=== PATIENT | female | born 1970 | race Caucasian/White ===

== ENCOUNTER → 2019-08-28 16:50 | Outpatient (CLI) | payer BC, SELFPAY ==
[2019-08-28 17:35] LABS: Absolute Lymphocyte Count 3.03 X10^3/uL (0.83-4.51); Absolute Neutrophil Count 5.1 X10^3/uL (2.0-7.7); Basophil# 0.04 X10^3/uL; Basophil% 0.4 % (0-1); Eosinophils% 2.2 % (0-5); Hematocrit 41.8 % (37-47); Hemoglobin 12.8 g/dL (12.0-15.0); Lymphocyte # 3.03 X10^3/ul (4.0); Lymphocyte % 33.9 % (19-41); Mean Corp Hgb Conc 30.6 g/dL (32-36); Mean Corpuscular Hgb 26.4 pg (27.0-32.0); Mean Corpuscular Volume 86.4 fL (81-99); Mean Platelet Vol. 9.9 fl (6.2-12.0); Monocyte# 0.56 X10^3/uL; Monocyte% 6.3 % (0-10); NRBC Flagged by Analyzer 0 % (0-5); Neutrophil # 5.07 X10^3/uL (2.7-7.7); Neutrophil % 56.9 % (47-70); Platelet Count 295 K/mm3 (150-450); RBC Distribution Width CV 14.9 % (11.6-14.6); RBC Distribution Width SD 47.7 fl (35.1-43.9); Red Blood Count 4.84 M/mm3 (4.2-5.4); White Blood Count 8.9 K/mm3 (4.4-11.0)
[2019-08-28 17:51] LABS: Hemoglobin A1c 5.6 % (4.2-6.3)
[2019-08-28 18:28] LABS: AST(SGOT) 20 U/L (15-37); Alanine Aminotransfer ALT/SGPT 28 U/L (13-56); Albumin, Serum 3.3 g/dL (3.2-5.0); Alkaline Phosphatase 142 U/L (45-117); Anion Gap 3 (5-15); BUN 15 mg/dL (7-18); BUN/Creat Ratio 17.5 RATIO (10-20); Calcium,Total 9.7 mg/dL (8.5-10.1); Chloride 109 mmol/L (98-107); Cholesterol 142 mg/dL (200); Creatinine, Serum 0.86 mg/dL (0.55-1.02); EST Glomerular Filtration Rate 75 mL/min (>60); Est Glom Filt Rate - Afr Amer 91 mL/min (>60); Globulin 3.3 g/dL (2.2-4.2); Glucose 79 mg/dL (74-106); High Density Lipoprotein 66 mg/dL; Potassium 4.6 mmol/L (3.5-5.1); Protein, Total 6.6 g/dL (6.4-8.2); Sodium Level 142 mmol/L (136-145); Triglycerides 67 mg/dL; Very Low Density Lipoprotein 13 mg/dL (5-40)
== END ==
PROVIDERS: PCP Family Medicine; Referring Provider Family Medicine; Visit Provider Family Medicine
DX: E88.81 Metabolic syndrome and other insulin resistance (principal)
CPT/HCPCS: 36415; 80053; 80061; 83036; 84443; 85025

== ENCOUNTER → 2020-09-05 12:07 | Outpatient (CLI) | payer BC, SELFPAY ==
[2020-09-05 12:53] LABS: ALB/GLOB Ratio 0.9 RATIO (0.9-2.4); AST(SGOT) 15 U/L (15-37); Alanine Aminotransfer ALT/SGPT 27 U/L (13-56); Albumin, Serum 3.1 g/dL (3.2-5.0); Alkaline Phosphatase 145 U/L (45-117); Anion Gap 4 (5-15); BUN 11 mg/dL (7-18); BUN/Creat Ratio 14.1 RATIO (10-20); Calcium,Total 8.8 mg/dL (8.5-10.1); Chloride 110 mmol/L (98-107); Cholesterol 132 mg/dL (200); Creatinine, Serum 0.78 mg/dL (0.55-1.02); EST Glomerular Filtration Rate 84 mL/min (>60); Est Glom Filt Rate - Afr Amer 101 mL/min (>60); Globulin 3.5 g/dL (2.2-4.2); Glucose 87 mg/dL (74-106); High Density Lipoprotein 62 mg/dL; Potassium 3.8 mmol/L (3.5-5.1); Protein, Total 6.6 g/dL (6.4-8.2); Sodium Level 141 mmol/L (136-145); Thyroid Stim Hormone (TSH) 1.07 uIU/mL (0.358-3.74); Triglycerides 63 mg/dL; Very Low Density Lipoprotein 13 mg/dL (5-40)
[2020-09-05 12:54] LABS: Absolute Lymphocyte Count 2.53 X10^3/uL (0.83-4.51); Absolute Neutrophil Count 3.9 X10^3/uL (2.0-7.7); Basophil# 0.04 X10^3/uL; Basophil% 0.6 % (0-1); Eosinophils% 2.8 % (0-5); Hematocrit 44.7 % (37-47); Hemoglobin 14.1 g/dL (12.0-15.0); Lymphocyte # 2.53 X10^3/ul (4.0); Lymphocyte % 35.6 % (19-41); Mean Corp Hgb Conc 31.5 g/dL (32-36); Mean Corpuscular Hgb 27.3 pg (27.0-32.0); Mean Corpuscular Volume 86.5 fL (81-99); Monocyte# 0.47 X10^3/uL; Monocyte% 6.6 % (0-10); NRBC Flagged by Analyzer 0 % (0-5); Neutrophil # 3.85 X10^3/uL (2.7-7.7); Neutrophil % 54.3 % (47-70); Platelet Count 333 K/mm3 (150-450); RBC Distribution Width CV 13.1 % (11.6-14.6); RBC Distribution Width SD 41.4 fl (35.1-43.9); Red Blood Count 5.17 M/mm3 (4.2-5.4); White Blood Count 7.1 K/mm3 (4.4-11.0)
[2020-09-05 13:22] LABS: Hemoglobin A1c 5.6 % (3.8-5.6)
== END ==
PROVIDERS: PCP Family Medicine; Visit Provider Family Medicine
DX: E88.81 Metabolic syndrome and other insulin resistance (principal); E66.01 Morbid (severe) obesity due to excess calories; Z68.43 Body mass index [BMI] 50.0-59.9, adult
CPT/HCPCS: 36415; 80053; 80061; 83036; 84443; 85025

== ENCOUNTER → 2021-06-28 17:10 | Outpatient (CLI) | payer BC, SELFPAY ==
[2021-06-28 18:17] LABS: Absolute Lymphocyte Count 3.16 X10^3/uL (0.83-4.51); Absolute Neutrophil Count 4.7 X10^3/uL (2.0-7.7); Basophil# 0.03 X10^3/uL; Basophil% 0.3 % (0-1); Eosinophil# 0.22 X10^3/uL; Eosinophils% 2.5 % (0-5); Hematocrit 43.4 % (37-47); Hemoglobin 13.7 g/dL (12.0-15.0); Lymphocyte # 3.16 X10^3/ul (0.83-4.51); Lymphocyte % 36.4 % (19-41); Mean Corp Hgb Conc 31.6 g/dL (32-36); Mean Corpuscular Hgb 27.6 pg (27.0-32.0); Mean Corpuscular Volume 87.5 fL (81-99); Mean Platelet Vol. 10.6 fl (6.2-12.0); Monocyte# 0.59 X10^3/uL; Monocyte% 6.8 % (0-10); NRBC Flagged by Analyzer 0 % (0-5); Neutrophil # 4.65 X10^3/uL (2.7-7.7); Neutrophil % 53.8 % (47-70); Platelet Count 278 K/mm3 (150-450); RBC Distribution Width CV 14.6 % (11.6-14.6); RBC Distribution Width SD 46.9 fl (35.1-43.9); Red Blood Count 4.96 M/mm3 (4.2-5.4); White Blood Count 8.7 K/mm3 (4.4-11.0)
[2021-06-28 18:52] LABS: Hemoglobin A1c 5.4 % (3.8-5.6)
[2021-06-28 19:07] LABS: ALB/GLOB Ratio 0.8 RATIO (0.9-2.4); AST(SGOT) 19 U/L (15-37); Alanine Aminotransfer ALT/SGPT 24 U/L (13-56); Alkaline Phosphatase 147 U/L (45-117); Anion Gap 4 (5-15); BUN 15 mg/dL (7-18); BUN/Creat Ratio 20.1 RATIO (10-20); Calcium,Total 9.3 mg/dL (8.5-10.1); Chloride 108 mmol/L (98-107); Creatinine, Serum 0.75 mg/dL (0.55-1.02); EST Glomerular Filtration Rate 88 mL/min (>60); Est Glom Filt Rate - Afr Amer 106 mL/min (>60); Globulin 3.8 g/dL (2.2-4.2); Glucose 78 mg/dL (74-106); Potassium 3.9 mmol/L (3.5-5.1); Protein, Total 6.8 g/dL (6.4-8.2); Sodium Level 138 mmol/L (136-145)
== END ==
PROVIDERS: PCP Family Medicine; Visit Provider Family Medicine
DX: R53.83 Other fatigue (principal); E88.81 Metabolic syndrome and other insulin resistance
CPT/HCPCS: 36415; 80053; 83036; 84443; 85025

== ENCOUNTER → 2022-06-21 | Outpatient (CLI) | payer BC, SELFPAY ==
[2022-06-21 18:17] LABS: ALB/GLOB Ratio 0.9 RATIO (0.9-2.4); AST(SGOT) 20 U/L (15-37); Alanine Aminotransfer ALT/SGPT 38 U/L (13-56); Albumin, Serum 3.3 g/dL (3.2-5.0); Alkaline Phosphatase 129 U/L (45-117); Anion Gap 7 (5-15); BUN 15 mg/dL (7-18); BUN/Creat Ratio 19.4 RATIO (10-20); Calcium,Total 9.2 mg/dL (8.5-10.1); Chloride 105 mmol/L (98-107); Cholesterol 149 mg/dL (200); Creatinine, Serum 0.77 mg/dL (0.55-1.02); EST Glomerular Filtration Rate 84 mL/min (>60); Est Glom Filt Rate - Afr Amer 102 mL/min (>60); Globulin 3.5 g/dL (2.2-4.2); Glucose 85 mg/dL (74-106); High Density Lipoprotein 67 mg/dL; Potassium 3.9 mmol/L (3.5-5.1); Protein, Total 6.8 g/dL (6.4-8.2); Sodium Level 139 mmol/L (136-145); Thyroid Stim Hormone (TSH) 1.46 uIU/mL (0.358-3.74)
[2022-06-21 18:56] LABS: Hemoglobin A1c 5.4 % (3.8-5.6)
== END | disposition home or self-care (01) ==
LOC: MTLAB 16:24
PROVIDERS: PCP Family Medicine; Referring Provider Family Medicine; Visit Provider Family Medicine
DX: Z00.00 Encounter for general adult medical examination without abnormal findings (principal)
CPT/HCPCS: 36415; 80053; 82465; 83036; 83718; 84443

== ENCOUNTER → 2022-07-25 | Outpatient (CLI) | payer BC, SELFPAY ==
--- NOTE | 2022-07-25 10:41 | BI_ITS ---
MAMMOGRAPHY - BILATERAL SCREENING REASON FOR EXAM: Female, 51 years old. Routine annual screening examination. PERTINENT HISTORY: Non-contributory. Remote bilateral breast reduction surgery. TECHNIQUE: Digital bilateral breast karime (3D mammographic acquisition) in the CC and MLO projections. 2-D mediolateral oblique (MLO) and craniocaudad (CC) views of both breasts were obtained. CAD: Full Field Digital Mammography with Computer Added Detection was performed. COMPARISON: No comparison mammograms available at this time. If any prior films become available, an addendum to this report can be generated. FINDINGS: Breast Composition: The breasts are almost entirely fatty. There are no dominant masses or suspicious calcifications. No other significant abnormalities are identified. BI/SCRN MAMM (CAD)W/KARIME BILAT IMPRESSION: Negative screening mammogram. Yearly followup mammogram recommended. (A) ASSESSMENT CATEGORY: BIRADS Category 1: Negative. A letter regarding these results will be sent to the patient by the facility within 30 days. Approximately 10% of breast cancers are not detected by mammography. A normal mammogram should not delay biopsy of a clinically suspicious abnormality. [id number] Electronically Signed: Luis Miguel Wild MD at 15:07 EST ,
== END | disposition home or self-care (01) ==
LOC: OPBI 10:39
PROVIDERS: PCP Family Medicine; Referring Provider Family Medicine; Visit Provider Family Medicine
DX: Z12.31 Encounter for screening mammogram for malignant neoplasm of breast (principal)
CPT/HCPCS: 77063; 77067

== ENCOUNTER → 2022-12-13 | Outpatient (CLI) | payer BC, SELFPAY ==
[2022-12-13 17:55] LABS: Absolute Lymphocyte Count 3.35 X10^3/uL (0.83-4.51); Absolute Neutrophil Count 5.1 X10^3/uL (2.0-7.7); Basophil# 0.05 X10^3/uL; Basophil% 0.5 % (0-1); Eosinophil# 0.22 X10^3/uL; Eosinophils% 2.3 % (0-5); Hematocrit 46.2 % (37-47); Hemoglobin 14.7 g/dL (12.0-15.0); Lymphocyte # 3.35 X10^3/ul (0.83-4.51); Lymphocyte % 35.4 % (19-41); Mean Corp Hgb Conc 31.8 g/dL (32-36); Mean Corpuscular Hgb 29.4 pg (27.0-32.0); Mean Corpuscular Volume 92.4 fL (81-99); Mean Platelet Vol. 9.9 fl (6.2-12.0); Monocyte# 0.67 X10^3/uL; Monocyte% 7.1 % (0-10); NRBC Flagged by Analyzer 0 % (0-5); Neutrophil # 5.14 X10^3/uL (2.7-7.7); Neutrophil % 54.5 % (47-70); Platelet Count 287 K/mm3 (150-450); RBC Distribution Width CV 13.1 % (11.6-14.6); RBC Distribution Width SD 44.3 fl (35.1-43.9); White Blood Count 9.5 K/mm3 (4.4-11.0)
[2022-12-13 18:17] LABS: Vitamin B12 412 pg/mL (211-911)
[2022-12-13 18:29] LABS: ALB/GLOB Ratio 0.9 RATIO (0.9-2.4); AST(SGOT) 24 U/L (15-37); Alanine Aminotransfer ALT/SGPT 34 U/L (13-56); Albumin, Serum 3.4 g/dL (3.2-5.0); Alkaline Phosphatase 122 U/L (45-117); Anion Gap 6 (5-15); BUN 13 mg/dL (7-18); Calcium,Total 9.6 mg/dL (8.5-10.1); Chloride 108 mmol/L (98-107); Creatinine, Serum 0.93 mg/dL (0.55-1.02); EST Glomerular Filtration Rate 68 mL/min (>60); Est Glom Filt Rate - Afr Amer 82 mL/min (>60); Globulin 3.7 g/dL (2.2-4.2); Glucose 93 mg/dL (74-106); Potassium 3.9 mmol/L (3.5-5.1); Protein, Total 7.1 g/dL (6.4-8.2); Sodium Level 140 mmol/L (136-145); Thyroid Stim Hormone (TSH) 1.48 uIU/mL (0.358-3.74)
== END | disposition home or self-care (01) ==
LOC: MTLAB 16:28
PROVIDERS: PCP Family Medicine; Referring Provider Family Medicine; Visit Provider Family Medicine
DX: G25.0 Essential tremor (principal); Z79.899 Other long term (current) drug therapy
CPT/HCPCS: 36415; 80053; 82607; 82746; 84443; 85025

== ENCOUNTER → 2023-08-24 | Outpatient (CLI) | payer OTHER, SELFPAY ==
--- NOTE | 2023-08-24 17:13 | RAD_ITS ---
STUDY: X-RAY - LEFT FOOT CLINICAL: Female, 52 years old. pain medial arch at navicular, mild swelling, no redness TECHNIQUE: 3 view(s) of the foot. COMPARISON: None. FINDINGS: Normal talus, calcaneus, and tarsal bones. Small plantar calcaneal enthesophyte. 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 Normal metatarsi. Normal metatarsophalangeal joint of the great toe. There is a bipartite fibula sesamoid. Normal interphalangeal joint of the great toe. Normal phalanges of the great toe. Normal second through fifth metatarsophalangeal joints. Normal interphalangeal joints and phalanges of the lesser toes. The soft tissue structures are unremarkable. RAD/Foot min 3 Views IMPRESSION: 1. Tiny type I accessory navicular bone. 2. Mild midfoot arthrosis. Electronically Signed: Errol Mari MD at 18:49 EST ,
--- OUTSIDE RECORDS SUMMARY | 2023-08-24 17:15 | XMS RPT_ITS | CCD ---
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 Name Role Phone Ronnie Mckeon Unavailable Unavailable Ronnie Mckeon Unavailable Unavailable BlandonSri Karolina Unavailable Unavailable Blandon, Sri Manuel Primary Care Provider RAZA COLE Attending Unavailable BLANDON, SRI MANUEL Primary Care Unavailable RAZA COLE Admitting Unavailable RAZA COLE Referring Unavailable BLANDON, SRI MANUEL Primary Care Unavailable RAZA COLE Admitting Unavailable RAZA COLE Referring Unavailable BLANDON, SRI MANUEL Primary Care Unavailable RAZA COLE Attending Unavailable BLANDON, SRI MANUEL Primary Care Unavailable RAZA COLE Admitting Unavailable RAZA COLE Referring Unavailable BLANDON, SRI MANUEL Primary Care Unavailable RAZA COLE Attending Unavailable BLANDON, SRI MANUEL Primary Care Unavailable MAGOLINE, ANA ROSA Admitting Unavailable JAQUELIN WESTBROOK Attending Unavailable MAGOLINE, ANA ROSA Referring Unavailable BLANDON, SRI MANUEL Primary Care Unavailable MAGOLINE, ANA ROSA Admitting Unavailable MAGOLINE, ANA ROSA Referring Unavailable BLANDON, SRI MANUEL Primary Care Unavailable GISSELL FARR Attending Unavailable MAGOLINE, ANA ROSA Admitting Unavailable JUAN MANUEL HAMPTON Attending Unavailable MAGOLINE, ANA ROSA Referring Unavailable BLANDON, SRI MANUEL Primary Care Unavailable MAGOLINE, ANA ROSA Admitting Unavailable JAQUELIN WESTBROOK Attending Unavailable MAGOLINE, ANA ROSA Referring Unavailable BLANDON, SRI MANUEL Primary Care Unavailable MAGOLINE, ANA ROSA Admitting Unavailable GISSELL FARR Attending Unavailable MAGOLINE, ANA ROSA Referring Unavailable BLANDON, SRI MANUEL Primary Care Unavailable MAGOLINE, ANA ROSA Admitting Unavailable GISSELL FARR Attending Unavailable MAGOLINE, ANA ROSA Referring Unavailable BLANDON, SRI MANUEL Primary Care Unavailable MAGOLINE, ANA ROSA Admitting Unavailable GISSELL FARR Attending Unavailable MAGOLINE, ANA ROSA Referring Unavailable BLANDON, SRI MANUEL Primary Care Unavailable MAGOLINE, ANA ROSA Admitting Unavailable GISSELL FARR Attending Unavailable MAGOLINE, ANA ROSA Referring Unavailable BLANDON, SRI MANUEL Primary Care Unavailable MAGOLINE, ANA ROSA Admitting Unavailable HEMINGJUAN MANUEL GUERRA Attending Unavailable MAGOLINE, ANA ROSA Referring Unavailable BLANDON, SRI MANUEL Primary Care Unavailable MAGOLINE, ANA ROSA Admitting Unavailable ANTONIO, GISSELL Attending Unavailable MAGOLINE, ANA ROAS Referring Unavailable BLANDON, SRI MANUEL Primary Care Unavailable MAGOLINE, ANA ROSA Admitting Unavailable HEMINGER, JUAN MANUEL Attending Unavailable MAGOLINE, ANA ROSA Referring Unavailable BLANDON, SRI MANUEL Primary Care Unavailable MAGOLINE, ANA ROSA Admitting Unavailable MAGOLINE, ANA ROSA Referring Unavailable BLANDON, SRI MANUEL Primary Care Unavailable JAQUELIN WESTBROOK Attending Unavailable MAGOLINE, ANA ROSA Admitting Unavailable ANTONIO, GISSELL Attending Unavailable MAGOLINE, ANA ROSA Referring Unavailable BLANDON, SRI MANUEL Primary Care Unavailable MAGOLINE, ANA ROSA Admitting Unavailable GISSELL FARR Attending Unavailable MAGOLINE, ANA ROSA Referring Unavailable BLANDON, SRI MANUEL Primary Care Unavailable Allergies Allergy Classification Reported Allergen(s) Allergy Type Date of Onset Reaction(s) Facility (1 source) Cat; Translations: [Cats] Propensity to adverse reactions [facility]disorder[facility]) Dust; Translations: [Dust] Propensity to adverse reactions (disorder) [facility] Repository (1 source) No Known Medication Allergies; Translations: [No Known Medication Allergies] Propensity to adverse reactions to drug (disorder) [facility] Repository Medications Current Medications Medication Drug Class(es) Dates Sig (Normalized) Sig (Original) DULoxetine 60 mg delayed release oral capsule (16 sources) Serotonin and Norepinephrine Reuptake Inhibitor Start: 12-20-2018 take 1 capsule by mouth once daily DULoxetine (CYMBALTA) 60 MG capsule Take 60 mg by mouth daily . 1 12/20/2018 Active Completed/Discontinued Medications Medication Drug Class(es) Dates Sig (Normalized) Sig (Original) acetaminophen 325 mg / HYDROcodone bitartrate 5 mg oral tablet (1 source) Opioid Agonist Start: 10-20-2016 End: 12-11-2018 HYDROcodone-acetam inophen (NORCO) 5-325 mg per tablet Problems Problem Classification Problem Date Documented Date Episodic/Chronic Joint disorders and dislocations; trauma-related (2 sources) Unspecified internal derangement of left knee; Translations: [Internal derangement of left knee] Onset: 09-16-2016 09-16-2016 Chronic Joint disorders and dislocations; trauma-related (14 sources) Internal derangement of left knee; Translations: [Internal derangement of left knee] Onset: 09-16-2016 09-16-2016 Other aftercare (20 sources) Surgical follow-up; Translations: [Aftercare for anterior cruciate ligament (ACL) repair] Onset: 07-11-2019 07-11-2019 Episodic Other congenital anomalies (2 sources) Other congenital malformations of lower limb(s), including pelvic girdle; 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] Chronic Other non-traumatic joint disorders (1 source) Pain in left knee; Translations: [Left knee pain, unspecified chronicity] Episodic Residual codes; unclassified (15 sources) History of operative procedure on knee; Translations: [History of left knee replacement] Onset: 07-11-2019 07-11-2019 Episodic Sprains and strains (2 sources) Sprain of unspecified site of left knee, initial encounter; Translations: [Sprain of left knee, unspecified ligament, initial encounter] Episodic Results Test Name Value Interpretation Reference Range Facil ity Vital Signs Date Time Vital Sign Value Performing Clinician Munira jacob 12-11-2018 13:16-0400 BMI (Body Mass Index) 48.42 kg/m2 Raza Cole [facility] 12-11-2018 13:16-0400 Height 167.6 cm Razamelyssa Cole [facility] 12-11-2018 13:16-0400 Weight 136.08 kg Razamelyssa Cole [facility] Encounters Encounter Date Encounter Type Care Provider Facility Start: 09-05-2019 End: 09-09-2019 Patient encounter procedure [facility] Start: 09-05-2019 End: 09-05-2019 Patient encounter procedure Ana Rosa [facility] Plan of Treatment Date Care Activity Detail Author Start: 09-05-2019 End: 09-05-2019 Treatment 09/05/2019 Treatment Ana Rosa Baron MD [address] [facility] [place] [address] Gissell Farr PTA [facility] Start: 09-02-2019 End: 09-02-2019 Treatment [facility] Start: 08-30-2019 End: 08-30-2019 Treatment 08/30/2019 Treatment Rehabilitation Ana Rosa Chamberlain MD [address] [place] [address] Gissell Farr, [facility] Start: 08-26-2019 End: 08-26-2019 Treatment [facility] Start: 08-23-2019 End: 08-23-2019 Treatment 08/23/2019 Treatment Rehabilitation Ana Rosa Chamberlain MD [address] [place] [address] Juan Manuel Hampton, [facility] Start: 08-21-2019 End: 08-21-2019 Treatment 08/21/2019 Treatment Rehabilitation Ana Rosa Chamberlain MD [address] [place] [address] Tammi Bustamante, [facility] Start: 08-16-2019 End: 08-16-2019 Treatment 08/16/2019 Treatment Rehabilitation Ana Rosa Chamberlain MD [address] [place] [address] Juan Manuel Hampton, [facility] Start: 08-14-2019 End: 08-14-2019 Treatment [facility] Start: 08-09-2019 End: 08-09-2019 Treatment 08/09/2019 Treatment Ana Rosa Baron MD [address] [place] [address] Gissell Farr, [facility] Start: 08-06-2019 End: 08-06-2019 Treatment 08/06/2019 Treatment Rehabilitation Ana Rosa Chamberlain MD [address] [place] [address] Tammi Bustamante, [facility] Start: 08-02-2019 End: 08-02-2019 Treatment 08/02/2019 Treatment Ana Rosa Baron MD [address] [place] [address] Tammi Bustamante, [facility] Start: 07-29-2019 End: 07-29-2019 Treatment 07/29/2019 Treatment Ana Rosa Baron MD [address] [place] [address] Gissell Farr, DEPENDENCY CASE MANAGER [facility] Start: 07-26-2019 End: 07-26-2019 Treatment [facility] Start: 07-24-2019 End: 07-24-2019 Treatment 07/24/2019 Treatment Rehabilitation Ana Rosa Chamberlain [facility] [address] [place] [address] Jaquelin Westbrook, PT [facility] Start: 07-19-2019 End: 07-19-2019 Treatment 07/19/2019 Treatment Rehabilitation Ana Rosa Chamberlain MD [address] [facility] [place] [address] Juan Manuel Hampton, DEPENDENCY CASE MANAGER [facility] Start: 07-16-2019 End: 07-16-2019 Treatment 07/16/2019 Treatment Rehabilitation Ana Rosa Chamberlain MD [address] [facility] [place] [address] Tammi Bustamante, DEPENDENCY CASE MANAGER [facility] Start: 04-07-2019 Influenza vaccination given [facility] Start: 01-08-2019 End: 01-02-2020 MR Knee Left Without Contrast MR Knee Left Without Contrast Imaging Routine Sprain of left knee, unspecified ligament, initial encounter Left knee pain, unspecified chronicity Expected: 01/08/2019, Expires: 01/02/2020 [facility] Payers Date Payer Category Payer Unknown SIXTO BENÍTEZ/JANIE/HMO/PPO xxxxxxxxxxxx 2018-Present xxxxxxxxxxxx [id number] 2018 Unknown [id number] 2017 Unknown 2015 Unknown [id number] 1972 Unknown [id number] [id number] 1972 Unknown [id number] [id number] 1972 Unknown [id number] 2.16.840.1.403068.3.579.2. 1972 Unknown [id number] 2.16.840.1.346957.3.579.2 1972 Unknown [id number] 2.16.840.1.770467.3.579.2 1972 Unknown [id number] 2.16.840.1.598415.3.579.2 1972 Unknown [id number] 2.16840.1.609654.3.579.2 1972 Unknown [id number] 2.16840.1.408410.3.579.2 1972 Unknown [id number] 2.16840.1.398672.3.579.2 1972 Unknown [id number] 2.840.1.949835.3.579. 1972 Unknown [id number] 2.16840.1.625599.3.579.2 1972 Unknown [id number] 2.16840.1.629205.3.579.2 1972 Unknown [id number] 2.16840.1.619015.3.579.2 1972 Unknown [id number] 2.16840.1.763457.3.579.2 1972 Unknown [id number] 2.16840.1.479705.3.579.2 1972 Unknown [id number] 2.16840.1.037899.3.579.2 1972 Unknown [id number] 2.16840.1.177802.3.579.2 1972 Unknown [id number] 2.16840.1.886518.3.579.2 1972 Unknown [id number] 2.16840.1.036026.3.579.2.903 1970 Unknown [id number] 2.16.840.1.727999.3.579.2.903 Social History Date Type Detail Facility Start: 12-11-2018 End: 07-11-2019 Tobacco smoking status NHIS Never smoker [facility] Sex Assigned At Not on file [facility] Start: 07-11-2019 Alcohol intake Current drinke r of alcohol (finding) [facility] Summary Purpose Family History No Family History Records FoundNo Family History Records FoundNo Family History Records Found Advance Directives No Advanced Directives Records FoundDocuments on File Type Date Recorded Patient Otolaryngology Surgeon Expl anation Advance Directives and Living Will Documents on File Type Date Recorded Patient Otolaryngology Surgeon Expl anation Advance Directives and Livin g Will 07/11/2019 9:51 AM Documents on File Type Date Recorded Patient Otolaryngology Surgeon Expl anation Advance Directives and Livin g Will 07/11/2019 9:51 AM History of Present Illness * Raza Cole MD - 12/11/2018 5:07 PM EDT Dictation on: 12/11/2018 5:10 PM by: RAZA COLE [[id number]] documented in this encounter* Raza Cole MD - 01/01/2019 5:08 PM EDT Jackson is seen for 2 separate issues. First of all, her knee still gives way, feels weak, it zuhair. She has been working on her exercises and I had injected this. She has been on anti-inflammatories and just does not seem to be getting better. She has full range of motion of her left knee. Thereis no mediolateral instability. There is lateral joint line tenderness, some medially. Rhiannon's sign is equivocal, probably a small effusion. IMPRESSION Left knee instability and pain. I think she may very well have meniscal pathology or possible anterior cruciate ligament tear. We will get an MRI and I will see her back after MRI. She is also complaining of right ankle with pain and swelling and actually in the foot and she has tenderness over the accessory navicular. I have discussed the options with her and she wants an injection. After sterile scrub, I injected 20 mg of Kenalog mixed with Xylocaine into that area. Hopefully this will help her. If not, she will need to see Podiatry. Procedures documented in this encounter* Vaibhav Jaquelin, PT - 07/11/2019 10:00 AM EST [facility] Evaluation Today's Date 07/11/2019 Patient Name: Jackson Sheriff Date of : 1970 Case Name: Therapy History of left knee replacement Functional Diagnosis: 1. History of left knee replacement Clinical Information: Subjective Referring Diagnosis: History of left knee replacement History of Present Illness Surgery Date: 06/26/2019 Days Post-Op: 15 Chief Complaint/ Mechanism of Injury: Patient states they replaced her L ACL on 06/26/19 with a donor graft. Patient states the surgery went really well with no complications. Patient states there was a little bit of arthritis in her knee. Patient states she tore it when she jumped down from some bleachers and didn't land right. Patient says they had it locked straight for a week, when she went back everything was healing well and they unlocked her brace. Patient states it swells a lot when sheis up too much especially in her calf. Has noticed some tightness in her calf. Previous Treatment for this condition: Surgery Prior treatment effectiveness: moderate Previous Imaging: X-ray and MRI Status: improving Pain Scale: Average Pain: 6/10 (achy) Pain at highest: 8/10 (sharp) Aggravating factors: the dog runs into her, being up for too long, stairs are going pretty well, upis easier than down Easing factors: elevating, icing, ibproufen Functional Status Functional Limitations: limited mobility, recent decline in level of ADL and standing Premorbid Functional Level: Patient reported Current Functional Level: None Daily activity scale: low active Prior level of function: low active Sleep Assessment Sleep disturbance: Sleep Disturbance (tries to sleep with it elevated, occasionally wakes her up) Red Flags: None Barriers to Care: None Fall risk screening Fallen 2 or more times in the last 12 months: Yes Injured as a result of a fall in the last 12 months: Yes Personal Goals: Like to be able to garden again, bend her knee all the way, walk for 2-3 miles Walking, gardening, take the dogs for a walk, home repairs, decorating Social History 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 [employer] Home environment: house Congregational, social, or cultural considerations to be made aware of before starting treatment: No Hip Right Hip Muscle Strength: Flexion: 4+ Abduction: 4+ Adduction: 4+ Left Hip Muscle Strength: Flexion: 4 Abduction: 4 Adduction: 4+ Knee Right Knee Range of Motion: WFL Muscle Strength: Flexion: 5 Extension: 5 Quad Set: good Left Knee Tenderness: Increased facilitation of HS insertion, quadricep, gastroc/soleus Range of Motion: Flexion Active: 110 Extension Active: 0 Muscle Strength Flexion: 4 Extension: 4 Quad set: fair Girth Measurements LE: Medial malleolus R:33.9 L:33.9 Tibial tuberosity: R:42.8 L: 42.2 10 cm distal to tibial tuberosity: R:44 L:43.5 10 cm proximal to medial malleolus: R:32 L:33.2 20 cm proximal to medial malleolus: R:43.1 L:43.5 Incision intact and healing well Ankle/Foot Right Ankle/Foot Muscle Strength: DorsiFlexion: 5 Plantar Flexion: 5 Left Ankle/Foot Muscle Strength: DorsiFlexion: 5 Plantar Flexion: 5 Treatments: Physical Therapy Exercise Log - 07/11/19 1153 OTHER Notes Jaquelin 08/22 10:09-10:45 Vitals Follow-protocol Therapeutic Exercise (29035) Intervention Scifit (A) Parameters Heel slides (A) Intervention QS (A) Parameters SLR (A) Intervention S/L Hip ABD (A) Parameters HS stretch (A) Intervention Calf stretch (A) Parameters Shuttle squat (A) Manual Therapy (60985) Intervention STM HS and Gastroc (A) PT Treatment Times Total Treatment Time 36 Treatment Plan: Frequency of Visits: twice per week Duration: 8 weeks Interventions: Therapeutic Exercise, Neuromuscular Re-Education, Manual Therapy, Therapeutic/ Functional Activities, Gait Training, Self Care, Hot/Cold Pack, Electrical Stimulation, Ultrasound and Vasopneumatic Rehab Potential: good Goals: Physical Therapy Ortho Goals: 1. Patient reports their primary goal is to bend her knee, walk, and garden again. 2. Patient will safely, correctly, and independently demonstrate the ability to perform a progressive HEP to achieve maximal rehabilitation potential and prevent this condition from recurring. 3. Patient will demonstrate greater than 120 degrees of knee flexion in order to be able to negotiate a flight of stairs. 4. Patient will demonstrate 0 degrees of knee extension in order to be able to demonstrate proper heel strike during ambulation. 5. Patient will demonstrate 5/5 hip flexion strength in order to be able to walk for 30 minutes. IE date: 07/11/2019 Progress report due: 09/05/19 Recert due: visit # 16 Patient Education provided: Education on patient diagnosis, physical therapist POC, and HEP to begin until next visit. Clinical Impression: Patient would benefit from skilled physical therapy in order to be able to increase L knee ROM, increase strength, improve neuromuscular control, increase muscle mobility, and improve joint stabilization in order to return to normal ADLs. Jaquelin Westbrook PT State License, [id number] documented in this encounter* Gissell Farr, DIANA - 07/16/2019 3:15 PM EST [facility] DAILY TREATMENT NOTE Today's Date 07/16/2019 Patient Name: Jackson Sheriff Date of : 1970 Current Visit #: 2 Authorized Visits: 45 Case Name: Therapy History of L ACL repair History: Pre-Treatment Pain Scale: 4 Symptoms: stabilized Functional Diagnosis: 1. Aftercare for anterior cruciate ligament (ACL) repair Clinical Information: Subjective: Pt reports she was able to keep Objective Initiated mult ex's this session to progress LE strengthening Vaso at end of session to control edema and pain Treatments: Physical Therapy Exercise Log - 07/16/19 1522 OTHER Notes Jaquelin 09/22 [id number] Vitals Follow-protocol Therapeutic Exercise (26667) Intervention Scifit 6min Parameters Heel slides (A) Intervention QS 5''x20 Parameters SLR (A) Intervention S/L Hip ABD (A) Parameters HS stretch LS 3x20'' Intervention Calf stretch standing on wedge 3x20'' Parameters Shuttle squat (A) Intervention Game ready x10min Low Manual Therapy (46943) Intervention STM HS and Gastroc (A) PT Treatment Times Total Treatment Time 36 Goals: Physical Therapy Ortho Goals: 1. Patient reports their primary goal is to bend her knee, walk, and garden again. 2. Patient will safely, correctly, and independently demonstrate the ability to perform a progressive HEP to achieve maximal rehabilitation potential and prevent this condition from recurring. 3. Patient will demonstrate greater than 120 degrees of knee flexion in order to be able to negotiate a flight of stairs. 4. Patient will demonstrate 0 degrees of knee extension in order to be able to demonstrate proper heel strike during ambulation. 5. Patient will demonstrate 5/5 hip flexion strength in order to be able to walk for 30 minutes. IE date: 07/11/2019 Progress report due: 09/05/19 Recert due: visit # 16 Patient Education: Verbal HEP with patient verbalized understanding. Post-Treatment Pain Scale: 2 Assessment: Patient had an expected response to treatment. Pt had good sx relief at end of treatment. Skilled Intervention demonstrated by modifications of treatment per exercise log including increased mobility and assessment of patient's response and safety interventions per exercise log. Progress towards goals as expected. Plan for Next Visit: Treatment Visit with focus on progress per protocol and as tolerated Gissell Farr PTA STATE LICENSE, [id number] documented in this encounter* Juan Manuel Hampton PTA - 07/19/2019 3:15 PM EST [facility] DAILY TREATMENT NOTE Today's Date 07/19/2019 Patient Name: Jackson Sheriff Date of : 1970 Current Visit #: 3 Authorized Visits: 45 Case Name: Therapy History of L ACL repair History: Pre-Treatment Pain Scale: 6 Symptoms: stabilized Functional Diagnosis: 1. Aftercare for anterior cruciate ligament (ACL) repair Clinical Information: Subjective: Pt arrived 11 minutes late to appointment. Pt states she was a little sore after last treatment session but not much pain. She reports she had a lot of swelling yesterday with increased pain though. Objective Continued exercises per log for improved knee mobility and gentle strengthening per protocol. Treatments: Physical Therapy Exercise Log - 07/19/19 1530 OTHER Notes 10/20 [phone] Vitals Follow-protocol Therapeutic Exercise (80207) Intervention Scifit 6min Parameters Heel slides, x10 Intervention QS 5''x20 Parameters SLR, x10 Parameters HS stretch LS 3x20'' Intervention Calf stretch standing on wedge 3x20'' Intervention Game ready x10min Low PT Treatment Times Therex Total Time 30 Direct Treatment Time 30 Total Treatment Time 40 Goals: Physical Therapy Ortho Goals: 1. Patient reports their primary goal is to bend her knee, walk, and garden again. 2. Patient will safely, correctly, and independently demonstrate the ability to perform a progressive HEP to achieve maximal rehabilitation potential and prevent this condition from recurring. 3. Patient will demonstrate greater than 120 degrees of knee flexion in order to be able to negotiate a flight of stairs. 4. Patient will demonstrate 0 degrees of knee extension in order to be able to demonstrate proper heel strike during ambulation. 5. Patient will demonstrate 5/5 hip flexion strength in order to be able to walk for 30 minutes. IE date: 07/11/2019 Progress report due: 09/05/19 Recert due: visit # 16 Assessment: Patient had an expected response to treatment. Pt able to perform all exercises withoutc/o increased pain but states she has most difficulty with SLR. Pt reports some relief post sessionafter GameReady. Skilled Intervention demonstrated by modifications of treatment per exercise log including increased mobility and increased volume and safety interventions per exercise log. Progress towards goals as expected. Plan for Next Visit: Treatment Visit with focus on increased strength and mobility per protocol Juan Manuel Hampton PTA STATE LICENSE, [id number] documented in this encounter* Jaquelin Westbrook, PT - 07/24/2019 3:15 PM EST [facility] DAILY TREATMENT NOTE Today's Date 07/24/2019 Patient Name: Jackson Sheriff Date of : 1970 Current Visit #: 4 Authorized Visits: 45 Case Name: Therapy History of L ACL repair History: Pre-Treatment Pain Scale: 3 Symptoms: stabilized Functional Diagnosis: 1. Aftercare for anterior cruciate ligament (ACL) repair Clinical Information: Subjective: Patient states her knee is sore and achy today and has been more achy the past 3 days. 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 Objective: Added in further knee strengthening. L Knee flexion: 131 L Knee extension: 4 Treatments: Physical Therapy Exercise Log - 07/24/19 1532 OTHER Notes 11/20 3:15-4:00 Vitals Follow-protocol Therapeutic Exercise (71630) Intervention Scifit 6min Parameters Heel slides, 10 x10 Intervention -- Parameters SLR, 2x10 Intervention S/L Hip ABD 2x10 Parameters HS stretch LS 3x20'' Intervention Calf stretch standing on wedge knees straight and bent 3x30'' Parameters Wall squats 10 x8 (squeezing hip ADD) Intervention Stool Scootches FWD/Back 2 laps each across clinic Modalities Modalities Vasopneumatic Treatment Parameters 10' 34 degrees low PT Treatment Times Therex Total Time 35 Modalities Total Time 10 Direct Treatment Time 45 Total Treatment Time 45 Goals: Physical Therapy Ortho Goals: 1. Patient reports their primary goal is to bend her knee, walk, and garden again. 2. Patient will safely, correctly, and independently demonstrate the ability to perform a progressive HEP to achieve maximal rehabilitation potential and prevent this condition from recurring. 3. Patient will demonstrate greater than 120 degrees of knee flexion in order to be able to negotiate a flight of stairs. 4. Patient will demonstrate 0 degrees of knee extension in order to be able to demonstrate proper heel strike during ambulation. 5. Patient will demonstrate 5/5 hip flexion strength in order to be able to walk for 30 minutes. IE date: 07/11/2019 Progress report due: 09/05/19 Recert due: visit # 16 Assessment: Patient demonstrates knee discomfort during first mini wall squat, due to being in squat position for too long. When the time is moved down to 10 seconds she has no knee discomfort. Patient demonstrates increased HS fatigue during stool scoots that is contributing to her knee tightness throughout the day. Plan for Next Visit: Treatment Visit with focus on increasing knee strength, ROM, and stabilization. Jaquelin Westbrook, CINDY State License, [id number] documented in this encounter* Gissell Farr, DEPENDENCY CASE MANAGER - 07/26/2019 4:00 PM EST [facility] DAILY TREATMENT NOTE Today's Date 07/26/2019 Patient Name: Jackson Sheriff Date of : 1970 Current Visit #: 5 Authorized Visits: 45 Case Name: Therapy History of L ACL repair History: Pre-Treatment Pain Scale: 2 Symptoms: stabilized Functional Diagnosis: 1. Aftercare for anterior cruciate ligament (ACL) repair Clinical Information: Subjective: pt reports some soreness today Objective Completed ex's today, pt reported calf stretch felt very good today Treatments: Physical Therapy Exercise Log - 07/26/19 1604 OTHER Notes 12/20 [id number] Vitals Follow-protocol Therapeutic Exercise ([id number]) Intervention Scifit 6min Parameters Heel slides, 10 x10 Parameters SLR, 2x10 Intervention S/L Hip ABD 2x10 Parameters HS stretch LS 3x20'' Intervention Calf stretch standing on wedge knees straight and bent 3x30'' Parameters Wall squats 10 x10 (squeezing hip ADD) Intervention Stool Scootches FWD/Back 2 laps each across clinic Modalities Modalities Vasopneumatic Treatment Parameters 10' 34 degrees low PT Treatment Times Therex Total Time 30 Modalities Total Time 10 Direct Treatment Time 40 Total Treatment Time 44 Goals: Physical Therapy Ortho Goals: 1. Patient reports their primary goal is to bend her knee, walk, and garden again. 2. Patient will safely, correctly, and independently demonstrate the ability to perform a progressive HEP to achieve maximal rehabilitation potential and prevent this condition from recurring. 3. Patient will demonstrate greater than 120 degrees of knee flexion in order to be able to negotiate a flight of stairs. 4. Patient will demonstrate 0 degrees of knee extension in order to be able to demonstrate proper heel strike during ambulation. 5. Patient will demonstrate 5/5 hip flexion strength in order to be able to walk for 30 minutes. IE date: 07/11/2019 Progress report due: 09/05/19 Recert due: visit # 16 Patient Education: Verbal HEP with patient verbalized understanding. Post-Treatment Pain Scale: 2 Assessment: Patient had an expected response to treatment. Pt was able to complete ex's with no change in sx's Skilled Intervention demonstrated by modifications of treatment per exercise log including assessment of patient's response and modalities as indicated and safety interventions per exercise log. Progress towards goals as expected. Plan for Next Visit: Treatment Visit with focus on progressing per protocol as tolerated Gissell Farr PTA STATE LICENSE, [id number] documented in this encounter* Gissell Farr, DEPENDENCY CASE MANAGER - 07/29/2019 3:15 PM EST [facility] DAILY TREATMENT NOTE Today's Date 07/29/2019 Patient Name: Jackson Sheriff Date of : 1970 Current Visit #: 6 Authorized Visits: 45 Case Name: Therapy History of L ACL repair History: Pre-Treatment Pain Scale: 4 Symptoms: stabilized Functional Diagnosis: 1. Aftercare for anterior cruciate ligament (ACL) repair Clinical Information: Subjective: Pt reports she feels good and slept good last night Objective Increased reps with wall squats and chair scoots Treatments: Physical Therapy Exercise Log - 07/29/19 1512 OTHER Notes 01/20 1513- (Pended) Vitals Follow-protocol (Pended) Therapeutic Exercise ([id number]) Intervention Scifit 6min (Pended) Parameters Heel slides, 10 x10 (Pended) Parameters SLR, 2x10 (Pended) Intervention S/L Hip ABD 2x10 (Pended) Parameters HS stretch LS 3x20'' (Pended) Intervention Calf stretch standing on wedge knees straight and bent 3x30'' (Pended) Parameters Wall squats 10 x10 (squeezing hip ADD) (Pended) Intervention Stool Scootches FWD/Back 2 laps each across clinic (Pended) Modalities Modalities Vasopneumatic Treatment (Pended) Parameters 10' 34 degrees low (Pended) Goals: Physical Therapy Ortho Goals: 1. Patient reports their primary goal is to bend her knee, walk, and garden again. 2. Patient will safely, correctly, and independently demonstrate the ability to perform a progressive HEP to achieve maximal rehabilitation potential and prevent this condition from recurring. 3. Patient will demonstrate greater than 120 degrees of knee flexion in order to be able to negotiate a flight of stairs. 4. Patient will demonstrate 0 degrees of knee extension in order to be able to demonstrate proper heel strike during ambulation. 5. Patient will demonstrate 5/5 hip flexion strength in order to be able to walk for 30 minutes. IE date: 07/11/2019 Progress report due: 09/05/19 Recert due: visit # 16 Patient Education: Verbal HEP with patient verbalized understanding. Post-Treatment Pain Scale: 4 Assessment: Patient had an expected response to treatment. Pt was able to complete progressed ex's with no increase in sx's. She was fatigued Skilled Intervention demonstrated by modifications of treatment per exercise log including increased mobility, increased volume and assessment of patient's response and safety interventions per exercise log. Progress towards goals as expected. Plan for Next Visit: Treatment Visit with focus on progressing per protocol Gissell Farr PTA STATE LICENSE, [id number] documented in this encounter* Gissell Farr PTA - 08/09/2019 3:15 PM EST [facility] DAILY TREATMENT NOTE Today's Date 08/09/2019 Patient Name: Jackson Sheriff Date of : 1970 Current Visit #: 7 Authorized Visits: 45 Case Name: Therapy History of L ACL repair History: Pre-Treatment Pain Scale: 3 Symptoms: stabilized Functional Diagnosis: 1. Aftercare for anterior cruciate ligament (ACL) repair Clinical Information: Subjective: Pt reports she started back to school but has not had an increase in sx's Objective Increased hold time with wall squats Increased laps with scoot Treatments: Physical Therapy Exercise Log - 08/09/19 1512 OTHER Notes 02/19 [id number] Vitals Follow-protocol Therapeutic Exercise ([id number]) Intervention Scifit 8min Parameters Heel slides, 10 x10 Parameters SLR, 2x10 Intervention S/L Hip ABD 2x10 Parameters HS stretch LS 3x20'' Intervention Calf stretch standing on wedge knees straight and bent 3x30'' Parameters Wall squats 20 x5 (squeezing hip ADD) Intervention Stool Scootches FWD/Back 3 laps each across clinic Modalities Modalities Vasopneumatic Treatment Parameters 10' 34 degrees low PT Treatment Times Therex Total Time 30 Modalities Total Time 10 Direct Treatment Time 40 Total Treatment Time 47 Goals: Physical Therapy Ortho Goals: 1. Patient reports their primary goal is to bend her knee, walk, and garden again. 2. Patient will safely, correctly, and independently demonstrate the ability to perform a progressive HEP to achieve maximal rehabilitation potential and prevent this condition from recurring. 3. Patient will demonstrate greater than 120 degrees of knee flexion in order to be able to negotiate a flight of stairs. 4. Patient will demonstrate 0 degrees of knee extension in order to be able to demonstrate proper heel strike during ambulation. 5. Patient will demonstrate 5/5 hip flexion strength in order to be able to walk for 30 minutes. IE date: 07/11/2019 Progress report due: 09/05/19 Recert due: visit # 16 Patient Education: Verbal HEP with patient verbalized understanding. Post-Treatment Pain Scale: 4 Assessment: Patient had an expected response to treatment. Pt had slight increase in sx's after session today Skilled Intervention demonstrated by modifications of treatment per exercise log including increased mobility and assessment of patient's response and safety interventions per exercise log. Progress towards goals as expected. Plan for Next Visit: Treatment Visit with focus on progress as tolerated Gissell Farr PTA STATE LICENSE, [id number] documented in this encounter* Gissell Farr PTA - 08/14/2019 3:15 PM EST [facility] DAILY TREATMENT NOTE Today's Date 08/14/2019 Patient Name: Jackson Sheriff Date of : 1970 Current Visit #: 8 Authorized Visits: 45 Case Name: Therapy History of L ACL repair History: Pre-Treatment Pain Scale: 5 Symptoms: stabilized Functional Diagnosis: 1. Aftercare for anterior cruciate ligament (ACL) repair Clinical Information: Subjective: Pt reports she forgot her crutch for work yesterday and is very sore today Objective Held ex progression today d/t increased soreness Treatments: Physical Therapy Exercise Log - 08/14/19 1523 OTHER Notes 03/22 1524- Vitals Follow-protocol Therapeutic Exercise ([id number]) Intervention Scifit 8min Parameters Heel slides, 10 x10 Parameters SLR, 2x10 Intervention S/L Hip ABD 2x10 Parameters HS stretch LS 3x20'' Intervention Calf stretch standing on wedge knees straight and bent 3x30'' Parameters Wall squats 20 x5 (squeezing hip ADD) Intervention Stool Scootches FWD/Back 3 laps each across clinic Modalities Modalities Vasopneumatic Treatment Parameters 10' 34 degrees low Goals: Physical Therapy Ortho Goals: 1. Patient reports their primary goal is to bend her knee, walk, and garden again. 2. Patient will safely, correctly, and independently demonstrate the ability to perform a progressive HEP to achieve maximal rehabilitation potential and prevent this condition from recurring. 3. Patient will demonstrate greater than 120 degrees of knee flexion in order to be able to negotiate a flight of stairs. 4. Patient will demonstrate 0 degrees of knee extension in order to be able to demonstrate proper heel strike during ambulation. 5. Patient will demonstrate 5/5 hip flexion strength in order to be able to walk for 30 minutes. IE date: 07/11/2019 Progress report due: 09/05/19 Recert due: visit # 16 Patient Education: Verbal HEP with patient verbalized understanding. Post-Treatment Pain Scale: 5 Assessment: Patient had an expected response to treatment. Pt had no increase in sx's despite increased pain coming in Skilled Intervention demonstrated by modifications of treatment per exercise log including increased mobility and assessment of patient's response and safety interventions per exercise log. Progress towards goals as expected. Plan for Next Visit: Treatment Visit with focus on progress per protocol as tolerated Gissell Farr PTA STATE LICENSE, [id number] documented in this encounter* Tammi Bustamante PTA - 08/16/2019 3:15 PM EST [facility] DAILY TREATMENT NOTE Today's Date 08/16/2019 Patient Name: Jackson Sheriff Date of : 1970 Current Visit #: 9 Authorized Visits: 45 Case Name: Therapy History of L ACL repair History: Pre-Treatment Pain Scale: 3 Symptoms: gradually improved Functional Diagnosis: 1. Aftercare for anterior cruciate ligament (ACL) repair Clinical Information: Subjective: reports her knee is feeling tired by the end of the day. She has a pop with pain usually 5 times/day with flexion. Objective Initaited quad sets with fair tolerance. Good understanding of quad control with SLR. Treatments: Physical Therapy Exercise Log - 08/16/19 1541 OTHER Notes 04/22 3:15-3:50 Vitals Follow-protocol Therapeutic Exercise ([id number]) Intervention Scifit 8min Parameters Heel slides, 10 x10 Parameters SLR, 2x10 Intervention S/L Hip ABD 2x10 Parameters HS stretch LS 3x20'' Intervention Calf stretch standing on wedge knees straight and bent 3x30'' Parameters Wall squats 20 x5 (squeezing hip ADD) Intervention Stool Scootches FWD/Back 3 laps each across clinic Modalities Modalities Vasopneumatic Treatment Parameters 10' 34 degrees low PT Treatment Times Therex Total Time 28 Modalities Total Time 10 Direct Treatment Time 38 Total Treatment Time 38 per exercise log including increased intensity and safety interventions per exercise log. Progress towards goals as expected. Plan for Next Visit: Treatment Visit with focus on protocol limits Tammi Bustamante PTA STATE LICENSE, [id number] documented in this encounter* Gissell Farr PTA - 08/21/2019 3:15 PM EST [facility] DAILY TREATMENT NOTE Today's Date 08/21/2019 Patient Name: Jackson Sheriff Date of : 1970 Current Visit #: 10 Authorized Visits: 45 Case Name: Therapy History of L ACL repair History: Pre-Treatment Pain Scale: 3 Symptoms: stabilized Functional Diagnosis: 1. Aftercare for anterior cruciate ligament (ACL) repair Clinical Information: Subjective: Pt reports min pain coming in today Decreased visit time today as Pt was late and requested to end session early for schedule constraints Objective Held mult ex's d/t time Treatments: Physical Therapy Exercise Log - 08/21/19 1528 OTHER Notes 05/22 [id number] Vitals Follow-protocol Therapeutic Exercise ([id number]) Intervention Scifit 8min Parameters Heel slides, 10 x10 Parameters SLR, 2x10 Intervention S/L Hip ABD 2x10 Parameters HS stretch LS 3x20'' Intervention Calf stretch standing on wedge knees straight and bent 3x30'' Parameters Wall squats 20 x5 (squeezing hip ADD) Intervention Stool Scootches FWD/Back 3 laps each across clinic Modalities Modalities Vasopneumatic Treatment Parameters 10' 34 degrees low PT Treatment Times Total Treatment Time 25 Goals: Physical Therapy Ortho Goals: 1. Patient reports their primary goal is to bend her knee, walk, and garden again. 2. Patient will safely, correctly, and independently demonstrate the ability to perform a progressive HEP to achieve maximal rehabilitation potential and prevent this condition from recurring. 3. Patient will demonstrate greater than 120 degrees of knee flexion in order to be able to negotiate a flight of stairs. 4. Patient will demonstrate 0 degrees of knee extension in order to be able to demonstrate proper heel strike during ambulation. 5. Patient will demonstrate 5/5 hip flexion strength in order to be able to walk for 30 minutes. IE date: 07/11/2019 Progress report due: 09/05/19 Recert due: visit # 16 Patient Education: Verbal HEP with patient verbalized understanding. Post-Treatment Pain Scale: 3 Assessment: Patient had an expected response to treatment. Pt verbalized feeling ready to progress ex's Skilled Intervention demonstrated by modifications of treatment per exercise log including increased mobility, increased volume and assessment of patient's response and safety interventions per exercise log. Progress towards goals as expected. Plan for Next Visit: Treatment Visit with focus on progress as tolerated Gissell Farr PTA STATE LICENSE, [id number] documented in this encounter* Juan Manuel Hampton PTA - 08/23/2019 3:15 PM EST [facility] DAILY TREATMENT NOTE Today's Date 08/23/2019 Patient Name: Jackson Sheriff Date of : 1970 Current Visit #: 11 Authorized Visits: 45 Case Name: Therapy History of L ACL repair History: Pre-Treatment Pain Scale: 5 Symptoms: gradually improved Functional Diagnosis: 1. Aftercare for anterior cruciate ligament (ACL) repair Clinical Information: Subjective: Pt reports she has a lot more increased soreness today and thinks it could be due to weather. She states she was walking around her room for about 45 minutes yesterday without a crutch and it popped and cracked about 7-8x so she went back to using the crutch. Objective Pt performed exercises per log for increased LE strength and mobility. Held progressions due to increased pain today. Treatments: Physical Therapy Exercise Log - 08/23/19 1509 OTHER Notes 06/22 [id number] Therapeutic Exercise ([id number]) Intervention Scifit 8min Parameters Heel slides, 10 x10 Parameters SLR, 3x10 Parameters HS stretch LS 3x20'' Intervention Calf stretch standing on wedge knees straight 3x30'' Parameters Wall squats 20 x3 (squeezing hip ADD) Intervention Stool Scootches FWD/Back 3 laps each across clinic Modalities Modalities Vasopneumatic Treatment Parameters 10' 34 degrees low PT Treatment Times Therex Total Time 30 Direct Treatment Time 30 Total Treatment Time 40 Goals: Physical Therapy Ortho Goals: 1. Patient reports their primary goal is to bend her knee, walk, and garden again. 2. Patient will safely, correctly, and independently demonstrate the ability to perform a progressive HEP to achieve maximal rehabilitation potential and prevent this condition from recurring. 3. Patient will demonstrate greater than 120 degrees of knee flexion in order to be able to negotiate a flight of stairs. 4. Patient will demonstrate 0 degrees of knee extension in order to be able to demonstrate proper heel strike during ambulation. 5. Patient will demonstrate 5/5 hip flexion strength in order to be able to walk for 30 minutes. IE date: 07/11/2019 Progress report due: 09/05/19 Recert due: visit # 16 Assessment: Patient had an expected response to treatment. Pt able to perform exercises without c/oincreased pain but demos increased muscle fatigue and states some exercises are more challenging than they usually are for her. Decreased reps with wall squats and stool scoots. Skilled Intervention demonstrated by modifications of treatment per exercise log including decreased rate and decreased intensity and safety interventions per exercise log. Progress towards goals as expected. Plan for Next Visit: Treatment Visit with focus on increased knee strength and mobility Juan Manuel Hampton PTA STATE LICENSE, [id number] documented in this encounter* Jaquelin Westbrook, PT - 08/26/2019 8:30 AM EST [facility] DAILY TREATMENT NOTE Today's Date 08/26/2019 Patient Name: Jackson Sheriff Date of : 1970 Current Visit #: 12 Authorized Visits: 45 Case Name: Therapy History of L ACL repair History: Pre-Treatment Pain Scale: 3 Symptoms: gradually improved Functional Diagnosis: 1. Aftercare for anterior cruciate ligament (ACL) repair Clinical Information: Subjective: Patient states her knee has been cracking multiple times throughout the day and it is not comfortable. She has had to go back to using the crutch to help support the knee because she is afraid it might give out. Patient states she has a follow-up with her surgeon today. Objective: Knee extension: 0 degrees Knee Flexion: Treatments: Physical Therapy Exercise Log - 08/26/19 1014 OTHER Notes 07/22 8:30-9:25 Vitals Concurrent Therapeutic Exercise ([id number]) Intervention Scifit 8min Parameters Heel slides, Parameters SLR, 3x10 Parameters HS stretch LS 3x20'' Intervention Calf stretch standing on wedge knees straight 3x30'' Parameters Wall squats 20 x3 (squeezing hip ADD) Intervention Stool Scootches FWD/Back 3 laps each across clinic Parameters Standing TKE x20 black TB Manual Therapy ([id number]) Intervention STM L HS insertion/gastroc origin 6' Parameters HS PNF 10 x6 Modalities Modalities Vasopneumatic Treatment Parameters 10' 34 degrees low PT Treatment Times Therex Total Time 20 Manual Therapy Total Time 8 Modalities Total Time 10 Direct Treatment Time 38 Total Treatment Time 55 Goals: Physical Therapy Ortho Goals: 1. Patient reports their primary goal is to bend her knee, walk, and garden again. 2. Patient will safely, correctly, and independently demonstrate the ability to perform a progressive HEP to achieve maximal rehabilitation potential and prevent this condition from recurring. 3. Patient will demonstrate greater than 120 degrees of knee flexion in order to be able to negotiate a flight of stairs. 4. Patient will demonstrate 0 degrees of knee extension in order to be able to demonstrate proper heel strike during ambulation. 5. Patient will demonstrate 5/5 hip flexion strength in order to be able to walk for 30 minutes. IE date: 07/11/2019 Progress report due: 09/05/19 Recert due: visit # 16 Assessment: Patient reports increased discomfort/pain across knee joint during HS PNF, patient demonstrates knee hyperextension that is contributing to her pain. Added in standing TKE in order to work on knee neuromuscular control and retraining knee not to go into hyperextension during ambulation.On rep #20 patient had an audible crack in her knee and states this is what she normally happens and it does not feel comfortable. Plan for Next Visit: Treatment Visit with focus on increasing knee strength. Jaquelin Westbrook PT State License, [id number] documented in this encounter* Gissell Farr, DEPENDENCY CASE MANAGER - 08/30/2019 3:15 PM EST [facility] DAILY TREATMENT NOTE Today's Date 08/30/2019 Patient Name: Jackson Sheriff Date of : 1970 Current Visit #: 13 Authorized Visits: 45 Case Name: Therapy History of L ACL repair History: Pre-Treatment Pain Scale: 4 Symptoms: stabilized Functional Diagnosis: 1. Aftercare for anterior cruciate ligament (ACL) repair Clinical Information: Subjective: Pt reports she has increased soreness today Objective Pt amb into clinic with SC today Treatments: Physical Therapy Exercise Log - 08/30/19 1527 OTHER Notes [id number] Therapeutic Exercise ([id number]) Intervention Scifit 8min Parameters Heel slides, Parameters SLR, 3x10 Parameters HS stretch LS 3x20'' Intervention Calf stretch standing on wedge knees straight 3x30'' Parameters Wall squats 20 x3 (squeezing hip ADD) Intervention Stool Scootches FWD/Back 3 laps each across clinic with yellow loop and DEPENDENCY CASE MANAGER Parameters Standing TKE x20 black TB Intervention Lat amb at mirror x4 Manual Therapy ([id number]) Intervention STM L HS insertion/gastroc origin 6' Parameters HS PNF 10 x6 Modalities Modalities Vasopneumatic Treatment Parameters 10' 34 degrees low PT Treatment Times Therex Total Time 25 Modalities Total Time 10 Direct Treatment Time 35 Total Treatment Time 42 Goals: Physical Therapy Ortho Goals: 1. Patient reports their primary goal is to bend her knee, walk, and garden again. 2. Patient will safely, correctly, and independently demonstrate the ability to perform a progressive HEP to achieve maximal rehabilitation potential and prevent this condition from recurring. 3. Patient will demonstrate greater than 120 degrees of knee flexion in order to be able to negotiate a flight of stairs. 4. Patient will demonstrate 0 degrees of knee extension in order to be able to demonstrate proper heel strike during ambulation. 5. Patient will demonstrate 5/5 hip flexion strength in order to be able to walk for 30 minutes. IE date: 07/11/2019 Progress report due: 09/05/19 Recert due: visit # 16 Patient Education: Verbal HEP with patient verbalized understanding. Post-Treatment Pain Scale: 4 Assessment: Patient had an expected response to treatment. Pt demod increased fatigue with stool scoots but min sx change Skilled Intervention demonstrated by modifications of treatment per exercise log including increased mobility, increased volume and assessment of patient's response and safety interventions per exercise log. Progress towards goals as expected. Plan for Next Visit: Treatment Visit with focus on possible dc Gissell Farr PTA STATE LICENSE, [id number] documented in this encounter* Gissell Farr PTA - 09/05/2019 3:15 PM EST [facility] OUTPATIENT REHABILITATION DAILY TREATMENT NOTE Today's Date 09/05/2019 Patient Name: Jackson Sheriff Date of : 1970 Current Visit #: 14 Authorized Visits: 45 Case Name: Therapy History of L ACL repair History: Pre-Treatment Pain Scale: 0 Symptoms: stabilized Functional Diagnosis: 1. Aftercare for anterior cruciate ligament (ACL) repair Clinical Information: Subjective: Pt reports min sx's coming in today unless she hyperextends Objective 1 Pt verbalizes being able to amb and bend her knee as desired 2 Pt reports ind with HEP 3 Pt consistently demos greater than 120 deg flexion 4 Pt demos 0 deg ext 5 Pt demos 5/5 B hip flexion strength Treatments: Physical Therapy Exercise Log - 09/05/19 1521 OTHER Notes 1518- Therapeutic Exercise (95395) Intervention Scifit 8min Parameters Heel slides, Parameters SLR, 3x10 Parameters HS stretch LS 3x20'' Intervention Calf stretch standing on wedge knees straight 3x30'' Parameters Wall squats 20 x3 (squeezing hip ADD) Intervention Stool Scootches FWD/Back 3 laps each across clinic with yellow loop and DEPENDENCY CASE MANAGER Parameters Standing TKE x20 black TB Intervention Lat amb at mirror x4 Manual Therapy (87379) Intervention STM L HS insertion/gastroc origin 6' Parameters HS PNF 10 x6 Modalities Modalities Vasopneumatic Treatment Parameters 10' 34 degrees low Goals: Physical Therapy Ortho Goals: 1. Patient reports their primary goal is to bend her knee, walk, and garden again. 2. Patient will safely, correctly, and independently demonstrate the ability to perform a progressive HEP to achieve maximal rehabilitation potential and prevent this condition from recurring. 3. Patient will demonstrate greater than 120 degrees of knee flexion in order to be able to negotiate a flight of stairs. 4. Patient will demonstrate 0 degrees of knee extension in order to be able to demonstrate proper heel strike during ambulation. 5. Patient will demonstrate 5/5 hip flexion strength in order to be able to walk for 30 minutes. IE date: 07/11/2019 Progress report due: 09/05/19 Recert due: visit # 16 Patient Education: Verbal HEP with patient verbalized understanding. Post-Treatment Pain Scale: 0 Assessment: Patient had an expected response to treatment. Pt demos good progress towards goals in POC Skilled Intervention demonstrated by modifications of treatment per exercise log including assessment of patient's response and safety interventions per exercise log. Progress towards goals as expected. Plan for Next Visit: Discharge Gissell Farr PTA STATE LICENSE, [id number] documented in this encounter Assessments Diagnosis Sprain of left knee, unspecified ligament, initial encounter- Primary Accessory navicular bone of right foot Diagnosis Sprain of left knee, unspecified ligament, initial encounter- Primary Accessory navicular bone of right foot Left knee pain, unspecified chronicity Diagnosis History of left knee replacement Aftercare for anterior cruciate ligament (ACL) repair Diagnosis Aftercare for anterior cruciate ligament (ACL) repair Diagnosis Aftercare for anterior cruciate ligament (ACL) repair Reason for Referral Status Reason Specialty Diagnoses / Procedures Referred By Contact Referred To Contact Pending Review Diagnoses Sprain of left knee, unspecified ligament, initial encounter Left knee pain, unspecified chronicity Procedures MR Knee Left Without Contrast Raza Cole MD [address] [place] [address] Additional Source Comments INFORMATION SOURCE (unrecogn ized section and content) DATE CREATED AUTHOR AUTHOR'S ORGANIZ ATION 03/15/2019 [facility] DATE CREATED AUTHOR AUTHOR'S ORGANIZ ATION 09/08/2019 [facility] Reason for Visit (unrecogniz ed section and content) Status Reason Specialty Diagnoses / Procedures Referred By Contact Referred To Contact Authorized Physical Therapy / Rehabilitation Diagnoses History of left knee replacement Ana Rosa Chamberlain MD [address] [place] [address] Rehab [place] [address] [facility] [place] [address] [place] [address] Reason Comments Pain Reason Comments Follow-up Reason Comments Physical Therapy History of left ACL repair Status Reason Specialty Diagnoses / Procedures Referred By Contact Referred To Contact Authorized Physical Therapy / Rehabilitation Diagnoses History of left knee replacement Ana Rosa Chamberlain MD [address] [facility] [place] [address] [place] [address] [place] [address] FOR RECORDS PERTAINING TO PATIENTS WHO ARE OR HAVE BEEN ENROLLED IN A CHEMICAL DEPENDENCY/SUBSTANCEABUSE PROGRAM, SOME INFORMATION MAY BE OMITTED. This clinical summary was aggregated from multiple sources. Caution should be exercised in using it in the provision of clinical care. This summary normalizes information from multiple sources, and as a consequence, information in this document may materially change the coding, format and clinical context of patient data. In addition, data may be omitted in some cases. CLINICAL DECISIONS SHOULD BE BASED ON THE PRIMARY CLINICAL RECORDS. [facility] [employer] [facility]. provides no warranty or guarantee of the accuracy or completeness of information in this document.
== END | disposition home or self-care (01) ==
LOC: MTRAD 17:13
PROVIDERS: PCP Family Medicine; Referring Provider Family Medicine; Visit Provider Family Medicine
DX: M84.376A Stress fracture, unspecified foot, initial encounter for fracture (principal)
CPT/HCPCS: 73630

== ENCOUNTER → 2023-08-29 | Outpatient (CLI) | payer OTHER, SELFPAY ==
--- NOTE | 2023-08-29 16:16 | BI_ITS ---
MAMMOGRAPHY - BILATERAL SCREENING REASON FOR EXAM: Female, 52 years old. Routine annual screening examination. PERTINENT HISTORY: Non-contributory. Prior bilateral breast reduction surgery. TECHNIQUE: Digital bilateral breast karime (3D mammographic acquisition) in the CC and MLO projections. 2-D mediolateral oblique (MLO) and craniocaudad (CC) views of both breasts were obtained. CAD: Full Field Digital Mammography with Computer Added Detection was performed. COMPARISON: Comparison is made with prior study dated July 25, 2022. FINDINGS: Breast Composition: The breasts are almost entirely fatty. There are no dominant masses or suspicious calcifications. No other significant abnormalities are identified. There has been no significant change since the prior study. BI/SCRN MAMM (CAD)W/KARIME BILAT IMPRESSION: Stable bilateral screening mammogram. Yearly follow-up mammogram recommended. (A) ASSESSMENT CATEGORY: BIRADS Category 1: Negative. A letter regarding these results will be sent to the patient by the facility within 30 days. Approximately 10% of breast cancers are not detected by mammography. A normal mammogram should not delay biopsy of a clinically suspicious abnormality. [id number] Electronically Signed: Luis Miguel Wild MD at 13:28 EST ,
--- OUTSIDE RECORDS SUMMARY | 2023-08-29 16:29 | XMS RPT_ITS | CCD ---
Author Name Unknown Address [address] [place] [address] Organization [facility] Care Team Providers Care Recovery Rn Name Role Phone Ronnie Mckeon Unavailable Unavailable Ronnie Mckeon Unavailable Unavailable BlandonSri Karolina Unavailable Unavailable Blandon, Sri Manuel Primary Care Provider [phone] RAZA COLE Attending Unavailable BLANDON, SRI MANUEL [...] Translations: [Cats] Propensity to adverse reactions (disorder) [facility] Dust; Translations: [Dust] Propensity to adverse reactions (disorder) [facility] Repository (1 source) No Known Medication Allergies; Translations: [No Known Medication Allergies] Propensity to adverse reactions to drug (disorder) [facility] Repository Medications Current Medications Medication Drug Class(es) [...] (Body Mass Index) 48.42 kg/m2 Raza Cole [facility] 12-11-2018 13:16-0400 Height 167.6 cm Razamelyssa Cole [facility] 12-11-2018 13:16-0400 Weight 136.08 kg Razamelyssa Cole [facility] Encounters Encounter Date Encounter Type Care Provider Facility Start: 09-05-2019 End: 09-09-2019 Patient encounter procedure [facility]A [facility] Start: 09-05-2019 End: 09-05-2019 Patient encounter procedure Ana Rosa [facility] Rehab Plan of Treatment Date Care Activity Detail Author Start: 09-05-2019 End: 09-05-2019 Treatment 09/05/2019 Treatment Ana Rosa Baron MD [address] [place] [address] Gissell Farr PTA [facility] Start: 09-02-2019 End: 09-02-2019 Treatment [facility] Start: 08-30-2019 End: 08-30-2019 Treatment 08/30/2019 Treatment Rehabilitation Ana Rosa Chamberlain MD [address] [place] [address] Gissell Farr, [facility] Start: 08-26-2019 End: 08-26-2019 Treatment [facility] Start: 08-23-2019 End: 08-23-2019 Treatment 08/23/2019 Treatment Rehabilitation Ana Rosa Chamberlain MD [address] [place] [address] Juan Manuel Hampton, [facility] Start: 08-21-2019 End: 08-21-2019 Treatment 08/21/2019 Treatment Rehabilitation Ana Rosa Chamberlain MD [address] [place] [address] Tammi Bustamante, [facility] Start: 08-16-2019 End: 08-16-2019 Treatment 08/16/2019 Treatment Rehabilitation Ana Rosa Chamberlain MD [address] [place] [address] Juan Manuel Hampton, [facility] Start: 08-14-2019 End: 08-14-2019 Treatment [facility] Start: 08-09-2019 End: 08-09-2019 Treatment 08/09/2019 Treatment Ana Rosa Baron MD [address] [place] [address] Gissell Farr, [facility] Start: 08-06-2019 End: 08-06-2019 Treatment 08/06/2019 Treatment Rehabilitation Ana Rosa Chamberlain MD [address] [place] [address] Tammi Bustamante, [facility] Start: 08-02-2019 End: 08-02-2019 Treatment 08/02/2019 Treatment Ana Rosa Baron MD [address] [place] [address] Tammi Bustamante, [facility] Start: 07-29-2019 End: 07-29-2019 Treatment 07/29/2019 Treatment Ana Rosa Baron MD [address] [place] [address] Gissell Farr, [facility] Start: 07-26-2019 End: 07-26-2019 Treatment [facility] Start: 07-24-2019 End: 07-24-2019 Treatment 07/24/2019 Treatment Rehabilitation Ana Rosa Chamberlain [facility] [address] [facility] [place] [address] Jaquelin Westbrook, PT [facility] Start: 07-19-2019 End: 07-19-2019 Treatment 07/19/2019 Treatment Rehabilitation Ana Rosa Chamberlain MD [address] [facility] [place] [address] Juan Manuel Hampton, [facility] [employer] AR[employer] Start: 07-16-2019 End: 07-16-2019 Treatment 07/16/2019 Treatment Rehabilitation Ana Rosa Chamberlain MD [address] [facility] [place] [address] Tammi Bustamante, [facility] [employer]SC[facility] ARCH[employer] Start: 04-07-2019 Influenza vaccination given [facility] Start: 01-08-2019 End: 01-02-2020 MR Knee Left Without Contrast MR Knee Left Without Contrast Imaging Routine Sprain of left knee, unspecified ligament, initial encounter Left knee pain, unspecified chronicity Expected: 01/08/2019, Expires: 01/02/2020 [facility] Payers Date Payer Category Payer Unknown SIXTO BENÍTEZ/JANIE/HMO/PPO xxxxxxxxxxxx 2018-Present xxxxxxxxxxxx [id number] 2018 Unknown [id number] 2017 Unknown 2015 Unknown [id number] 1970 Unknown [id number] [id number] 1970 Unknown [id number] 2.16.840.1.273785.3.579.2.903 1972 Unknown [id number] 2.16.840.1.556091.3.579.2. 1972 Unknown [id number] 2.16.840.1.212129.3.579.2 1972 Unknown [id number] 2.16.840.1.876323.3.579.2 1972 Unknown [id number] 2.16.840.1.754195.3.579.2 1972 Unknown [id number] 2.16840.1.061816.3.579.2 1972 Unknown [id number] 2.16840.1.170750.3.579.2 1972 Unknown [id number] 2.16840.1.860660.3.579.2 1972 Unknown [id number] 2.840.1.602869.3.579. 1972 Unknown [id number] 2.16840.1.315652.3.579.2 1972 Unknown [id number] 2.16840.1.406272.3.579.2 1972 Unknown [id number] 2.16840.1.704652.3.579.2 1972 Unknown [id number] 2.16840.1.306628.3.579.2 1972 Unknown [id number] 2.16840.1.431433.3.579.2 1972 Unknown [id number] 2.16840.1.522235.3.579.2 1972 Unknown [id number] 2.16840.1.636614.3.579.2 1972 Unknown [id number] 2.16840.1.462816.3.579.2 1972 Unknown [id number] 2.16840.1.049133.3.579.2.903 1970 Unknown [id number] 2.16.840.1.443715.3.579.2.903 Social History Date Type Detail Facility Start: 12-11-2018 End: 07-11-2019 Tobacco smoking status NHIS Never smoker [facility] Sex Assigned At Not on file [facility] Start: 07-11-2019 Alcohol intake Current drinke r of alcohol (finding) [facility] Summary Purpose Family History No Family History Records FoundNo Family History Records FoundNo Family History Records Found Advance Directives No Advanced Directives Records FoundDocuments on File Type Date Recorded Patient Filament Tester Expl anation Advance Directives and Living Will Documents on File Type Date Recorded Patient Filament Tester Expl anation Advance Directives and Livin g Will 07/11/2019 9:51 AM Documents on File Type Date Recorded Patient Filament Tester Expl anation Advance Directives and Livin g Will 07/11/2019 9:51 AM History of Present Illness * Raza Cole MD - 12/11/2018 5:07 PM EDT Dictation on: 12/11/2018 5:10 PM by: RAZA COLE [[id number]] documented in this encounter* Raza Cole MD [...] Jaquelin, PT - 07/11/2019 10:00 AM EST [facility] OUTPATIENT REHABILITATION Evaluation Today's Date 07/11/2019 [...] 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 Jaquelin Westbrook PT State License, [id number] documented in this encounter* Gissell Farr, DIANA - 07/16/2019 3:15 PM EST [facility] OUTPATIENT REHABILITATION DAILY TREATMENT NOTE Today's [...] - 07/16/19 1522 OTHER Notes Jaquelin 09/22 [phone] Vitals Follow-protocol Therapeutic Exercise (02231) Intervention Scifit 6min Parameters Heel slides (A) Intervention QS 5''x20 Parameters SLR (A) Intervention S/L Hip ABD (A) Parameters HS stretch LS 3x20'' Intervention Calf stretch standing on wedge 3x20'' Parameters Shuttle squat (A) Intervention Game ready x10min Low Manual Therapy (47836) Intervention STM HS and Gastroc (A) PT [...] as tolerated Gissell Farr PTA STATE LICENSE, [id number] documented in this encounter* Juan Manuel Hampton PTA - 07/19/2019 3:15 PM EST [facility] OUTPATIENT REHABILITATION DAILY TREATMENT NOTE Today's [...] Notes 10/20 [phone] Vitals Follow-protocol Therapeutic Exercise (75816) Intervention Scifit 6min Parameters Heel slides, x10 [...] protocol Juan Manuel Hampton PTA STATE LICENSE, [id number] documented in this encounter* Jaquelin Westbrook, PT - 07/24/2019 3:15 PM EST [facility] OUTPATIENT REHABILITATION DAILY TREATMENT NOTE Today's [...] Notes 11/20 3:15-4:00 Vitals Follow-protocol Therapeutic Exercise (82603) Intervention Scifit 6min Parameters Heel slides, 10 [...] and stabilization. Jaquelin Westbrook, CINDY State License, [id number] documented in this encounter* Gissell Farr, HIGHW[address] LANDSCAPE ARCHITECT - 07/26/2019 4:00 PM EST [facility] OUTPATIENT REHABILITATION DAILY TREATMENT NOTE Today's [...] Log - 07/26/19 1604 OTHER Notes 12/20 0870-9577 Vitals Follow-protocol Therapeutic Exercise (14661) Intervention Scifit 6min Parameters Heel slides, 10 [...] as tolerated Gissell Farr PTA STATE LICENSE, [id number] documented in this encounter* Gissell Farr, [address] LANDSCAPE ARCHITECT - 07/29/2019 3:15 PM EST [facility] OUTPATIENT REHABILITATION DAILY TREATMENT NOTE Today's [...] 1513- (Pended) Vitals Follow-protocol (Pended) Therapeutic Exercise (74169) Intervention Scifit 6min (Pended) Parameters Heel slides, [...] per protocol Gissell Farr PTA STATE LICENSE, [id number] documented in this encounter* Gissell Farr PTA - 08/09/2019 3:15 PM EST [facility] OUTPATIENT REHABILITATION DAILY TREATMENT NOTE Today's [...] Log - 08/09/19 1512 OTHER Notes 02/19 3996-0783 Vitals Follow-protocol Therapeutic Exercise (98024) Intervention Scifit 8min Parameters Heel slides, 10 [...] as tolerated Gissell Farr PTA STATE LICENSE, [id number] documented in this encounter* Gissell Farr PTA - 08/14/2019 3:15 PM EST [facility] OUTPATIENT REHABILITATION DAILY TREATMENT NOTE Today's [...] Notes 03/22 1524- Vitals Follow-protocol Therapeutic Exercise (07950) Intervention Scifit 8min Parameters Heel slides, 10 [...] as tolerated Gissell Farr PTA STATE LICENSE, [id number] documented in this encounter* Tammi Bustamante PTA - 08/16/2019 3:15 PM EST [facility] OUTPATIENT REHABILITATION DAILY TREATMENT NOTE Today's [...] Notes 04/22 3:15-3:50 Vitals Follow-protocol Therapeutic Exercise (79306) Intervention Scifit 8min Parameters Heel slides, 10 [...] protocol limits Tammi Bustamante PTA STATE LICENSE, [id number] documented in this encounter* Gissell Farr PTA - 08/21/2019 3:15 PM EST [facility] OUTPATIENT REHABILITATION DAILY TREATMENT NOTE Today's [...] Log - 08/21/19 1528 OTHER Notes 05/22 [phone] Vitals Follow-protocol Therapeutic Exercise (53824) Intervention Scifit 8min Parameters Heel slides, 10 [...] as tolerated Gissell Farr PTA STATE LICENSE, [id number] documented in this encounter* Juan Manuel Hampton PTA - 08/23/2019 3:15 PM EST [facility] OUTPATIENT REHABILITATION DAILY TREATMENT NOTE Today's [...] 1509 OTHER Notes 06/22 [phone] Therapeutic Exercise (18915) Intervention Scifit 8min Parameters Heel slides, 10 [...] mobility Juan Manuel Hampton PTA STATE LICENSE, [id number] documented in this encounter* Jaquelin Westbrook, PT - 08/26/2019 8:30 AM EST [facility] OUTPATIENT REHABILITATION DAILY TREATMENT NOTE Today's [...] Notes 07/22 8:30-9:25 Vitals Concurrent Therapeutic Exercise (61575) Intervention Scifit 8min Parameters Heel slides, Parameters SLR, 3x10 Parameters HS stretch LS 3x20'' Intervention Calf stretch standing on wedge knees straight 3x30'' Parameters Wall squats 20 x3 (squeezing hip ADD) Intervention Stool Scootches FWD/Back 3 laps each across clinic Parameters Standing TKE x20 black TB Manual Therapy (27563) Intervention STM L HS insertion/gastroc origin 6' [...] knee strength. Jaquelin Westbrook PT State License, [id number] documented in this encounter* Gissell Farr, HIGHW[address] LANDSCAPE ARCHITECT - 08/30/2019 3:15 PM EST [facility] OUTPATIENT REHABILITATION DAILY TREATMENT NOTE Today's [...] Exercise Log - 08/30/19 1527 OTHER Notes [id number] Therapeutic Exercise (35116) Intervention Scifit 8min Parameters Heel slides, Parameters SLR, 3x10 Parameters HS stretch LS 3x20'' Intervention Calf stretch standing on wedge knees straight 3x30'' Parameters Wall squats 20 x3 (squeezing hip ADD) Intervention Stool Scootches FWD/Back 3 laps each across clinic with yellow loop and [facility]IGHWAY LANDSCAPE ARCHITECT Parameters Standing TKE x20 black TB Intervention Lat amb at mirror x4 Manual Therapy (80793) Intervention STM L HS insertion/gastroc origin 6' [...] possible dc Gissell Farr PTA STATE LICENSE, [id number] documented in this encounter* Gissell Farr PTA - 09/05/2019 3:15 PM EST [facility] OUTPATIENT REHABILITATION DAILY TREATMENT NOTE Today's [...] 09/05/19 1521 OTHER Notes 1518- Therapeutic Exercise (00992) Intervention Scifit 8min Parameters Heel slides, Parameters SLR, 3x10 Parameters HS stretch LS 3x20'' Intervention Calf stretch standing on wedge knees straight 3x30'' Parameters Wall squats 20 x3 (squeezing hip ADD) Intervention Stool Scootches FWD/Back 3 laps each across clinic with yellow loop and [facility]IGHWAY LANDSCAPE ARCHITECT Parameters Standing TKE x20 black TB Intervention Lat amb at mirror x4 Manual Therapy (95185) Intervention STM L HS insertion/gastroc origin 6' [...] Visit: Discharge Gissell Farr PTA STATE LICENSE, [id number] documented in this encounter Assessments Diagnosis Sprain [...] Left Without Contrast Raza Cole MD [address] [place] [address] Additional Source Comments INFORMATION SOURCE (unrecogn ized section and content) DATE CREATED AUTHOR AUTHOR'S ORGANIZ ATION 03/15/2019 [facility] DATE CREATED AUTHOR AUTHOR'S ORGANIZ ATION 09/08/2019 [facility] Reason for Visit (unrecogniz ed section and content) Status Reason Specialty Diagnoses / Procedures Referred By Contact Referred To Contact Authorized Physical Therapy / Rehabilitation Diagnoses History of left knee replacement Ana Rosa Chamberlain MD [address] [place] [address] Rehab [place] [address] [facility] [place] [address] [place] [address] Reason Comments Pain Reason Comments Follow-up Reason Comments Physical Therapy History of left ACL repair Status Reason Specialty Diagnoses / Procedures Referred By Contact Referred To Contact Authorized Physical Therapy / Rehabilitation Diagnoses History of left knee replacement Ana Rosa Chamberlain MD [address] [place] [address] [place] [address] [place] [address] FOR RECORDS PERTAINING TO PATIENTS WHO ARE [...] BE BASED ON THE PRIMARY CLINICAL RECORDS. [facility] [employer] [facility]. provides no warranty or guarantee of the accuracy or completeness of information in this document.
== END | disposition home or self-care (01) ==
LOC: OPBI 16:15
PROVIDERS: PCP Family Medicine; Referring Provider Family Medicine; Visit Provider Family Medicine
DX: Z12.31 Encounter for screening mammogram for malignant neoplasm of breast (principal)
CPT/HCPCS: 77063; 77067

== ENCOUNTER → 2024-12-13 | Outpatient (CLI) | payer OTHER, SELFPAY ==
[2024-12-13 16:35] LABS: Absolute Lymphocyte Count 2.67 X10^3/uL (0.83-4.51); Absolute Neutrophil Count 4.3 X10^3/uL (2.0-7.7); Basophil# 0.04 X10^3/uL; Basophil% 0.5 % (0-1); Eosinophil# 0.19 X10^3/uL; Eosinophils% 2.5 % (0-5); Hematocrit 41.3 % (37-47); Hemoglobin 13.5 g/dL (12.0-15.0); Lymphocyte # 2.67 X10^3/ul (0.83-4.51); Lymphocyte % 34.5 % (19-41); Mean Corp Hgb Conc 32.7 g/dL (32-36); Mean Corpuscular Hgb 29.8 pg (27.0-32.0); Mean Corpuscular Volume 91.2 fL (81-99); Mean Platelet Vol. 10.4 fl (6.2-12.0); Monocyte% 6.5 % (0-10); NRBC Flagged by Analyzer 0 % (0-5); Neutrophil # 4.34 X10^3/uL (2.7-7.7); Neutrophil % 55.9 % (47-70); Platelet Count 295 K/mm3 (150-450); RBC Distribution Width CV 13.8 % (11.6-14.6); Red Blood Count 4.53 M/mm3 (4.2-5.4); White Blood Count 7.8 K/mm3 (4.4-11.0)
[2024-12-13 16:52] LABS: ALB/GLOB Ratio 1.3 RATIO (0.9-2.4); AST(SGOT) 25 U/L (<=31); Alanine Aminotransfer ALT/SGPT 25 U/L (<=34); Albumin, Serum 3.6 g/dL (3.5-5.0); Alkaline Phosphatase 131 U/L (35-104); Anion Gap 9 (5-15); BUN 13 mg/dL (4-19); BUN/Creat Ratio 18.3 RATIO (10-20); Calcium,Total 9.8 mg/dL (7.6-11.0); Carbon Dioxide 24.1 mmol/L (21.0-32.0); Chloride 107 mmol/L (98-108); Creatinine, Serum 0.72 mg/dL (0.70-1.20); EST Glomerular Filtration Rate 100 (>60); Globulin 2.8 g/dL (2.2-4.2); Glucose 88 mg/dL (70-99); Potassium 4.2 mmol/L (3.3-5.1); Protein, Total 6.4 g/dL (5.9-8.4); Sodium Level 140 mmol/L (133-145)
[2024-12-13 17:09] LABS: Erythrocyte Sedimentation Rate 12 mm/hr (0-30)
[2024-12-13 17:21] LABS: Hemoglobin A1c 5.5 % (<=5.6)
== END | disposition home or self-care (01) ==
LOC: MFPLAB 11:49
PROVIDERS: PCP Family Medicine; Referring Provider Family Medicine; Visit Provider Family Medicine
DX: R51.9 Headache, unspecified (principal); E88.810 Metabolic syndrome
CPT/HCPCS: 36415; 80053; 83036; 84443; 85025; 85652; 86140